=== PATIENT | male | born 1955 | race Caucasian/White ===

== ENCOUNTER → 2017-03-04 | Outpatient (CLI) | payer OTHER, BC ==
[2017-03-04] MEDS: GADOBUTROL 10 MMOL/10 ML VIAL IV (09:40)
== END | disposition home or self-care (01) ==
LOC: KCIC MRI 07:59
DX: M50.223 Other cervical disc displacement at C6-C7 level (principal); M48.02 Spinal stenosis, cervical region; M47.892 Other spondylosis, cervical region
CPT/HCPCS: 73220; A9585